=== PATIENT | female | born 1990 ===

== ENCOUNTER 2018-11-28 11:00 | Emergency (ER) | payer SELFPAY ==
[2018-11-28 11:02] VITALS: BMI 21.2
[2018-11-28 11:04] VITALS: O2SAT 100
--- NOTE | 2018-11-28 11:42 | C.PDOC ---
History Of Present Illness 28 year old female presents to the ED complaining of vaginal spotting and abdominal cramping that began this morning. Reports she is currently and is concerned because she had a miscarriage 4 months ago. Denies taking any medications for the pain. Denies any nausea, vomiting, diarrhea, chest pain, back pain, or any other urinary symptoms. Time Seen by Provider: 11/28/18 11:14 Chief Complaint (Nursing): Female Genitourinary History Per: Patient History/Exam Limitations: no limitations Onset/Duration Of Symptoms: Hrs Current Symptoms Are (Timing): Still Present Quality Of Discomfort: Cramping Associated Symptoms: denies: Fever, Chills, Nausea, Vomiting, Diarrhea, Back Pain Past Medical History Reviewed: Historical Data, Nursing Documentation, Vital Signs Vital Signs: Last Vital Signs Temp 97.5 F L 11/28/18 11:10 Pulse 78 11/28/18 11:04 Resp 79 H 11/28/18 11:10 BP 97/61 L 11/28/18 11:10 Pulse Ox 100 11/28/18 11:10 - Medical History PMH: No Chronic Diseases Surgical History: Cholecystectomy Family History: States: No Known Family Hx - Social History Hx Alcohol Use: No Hx Substance Use: No Review Of Systems Constitutional: Negative for: Fever, Chills Cardiovascular: Negative for: Chest Pain Gastrointestinal: Positive for: Abdominal Pain. Negative for: Nausea, Vomiting, Diarrhea Genitourinary: Positive for: Vaginal Bleeding (Spotting ). Negative for: Dysuria, Hematuria Musculoskeletal: Negative for: Back Pain Physical Exam - Physical Exam Appears: Non-toxic, No Acute Distress Skin: Warm, Dry, No Rash Head: Normacephalic Eye(s): bilateral: Normal Inspection, EOMI Oral Mucosa: Moist Neck: Supple Chest: Symmetrical Cardiovascular: Rhythm Regular Respiratory: Normal Breath Sounds, No Rales, No Rhonchi, No Wheezing Gastrointestinal/Abdominal: Bowel Sounds, Soft, Tenderness (Mild suprapubic tenderness ), No Distention, No Guarding, No Rebound Neurological/Psych: Oriented x3, Normal Speech Gait: Steady ED Course And Treatment - Laboratory Results Result Diagrams: 11/28/18 11:49 11/28/18 11:49 Lab Interpretation: No Acute Changes O2 Sat by Pulse Oximetry: 100 (RA) Pulse Ox Interpretation: Normal - CT Scan/US Preg TV Other Rad Studies (CT/US): Read By Radiologist, Radiology Report Reviewed CT/US Interpretation: Accession No. : [id number]. Patient Name / ID : SAVANNA ALEJO / [id number]. Exam Date : 11/28/2018 12:07:13 ( Approved ). Study Comment : Sex / Age : F / 28Y. Creator : Griselda London MD. Dictator : Griselda London MD. Marketing Analytics Specialist : Assistant Professor Nurse Education : Griselda London MD. Approver2 : Report Date : 11/28/2018 12:33:04. My Comment : . Date of service: 11/28/2018. Indication: , bleeding with pain. Comparison: None available. Technique: Transabdominal pelvic ultrasound. Findings: Uterus measures approximately 10.7 x 5.9 x 7.9 cm. Anteverted. Cervix length measures approximately 2.6 cm. There is a single intrauterine fetus present. The gestational sac measures 3.0 cm and is compatible with a gestational age of 8 weeks 0 days. The crown-rump length measures 1.6 cm and is compatible with a gestational age of 8 weeks 0 days. There is heart motion which measured 133.9 BPM. The right ovary measures 2.6 x 1.4 x 2.6 cm. The left ovary measures 2.8 x 2.3 x 2.7 cm. Flow was demonstrated to both ovaries. Impression: Live single intrauterine with estimated gestational age 8 weeks 0 days. heart rate 133.9 bpm. Advise an anomaly screen at 16-18 weeks gestational age Medical Decision Making Medical Decision Making: Impression: with cramping pain and light spotting Plan - Labs - Transvaginal US Labs reviewed and unremarkable Ultrasound shows IUP 8 weeks Patient remained well in no distress. Discussed results and diagnosis of threatened miscarriage with patient and the plan for discharge. she understands and needs to follow up with grill attendant Disposition Counseled Patient/Family Regarding: Diagnosis, Need For Followup - Disposition Referrals: [facility] [Outside] [facility] [Outside] Disposition: HOME/ ROUTINE Disposition Time: 13:22 Condition: GOOD Additional Instructions: Your labs were normal. Ultrasound shows 8 weeks Please follow up with WELDING MACHINE OPERATOR THERMIT for further evaluation and care Instructions: Threatened Miscarriage (DC) Forms: [employer] (Guatemalan) - POA Present On Arrival: None - Clinical Impression Clinical Impression: Threatened - PA / WAREHOUSER / Resident Statement MD/DO has examined the patient and agrees with the treatment plan. - Scribe Statement The provider has reviewed the documentation as recorded by the Scribe Yajaira Manuel All medical record entries made by the Scribe were at my direction and personally dictated by me. I have reviewed the chart and agree that the record accurately reflects my personal performance of the history, physical exam, medical decision making, and the department course for this patient. I have also personally directed, reviewed, and agree with the discharge instructions and disposition.
[2018-11-28 11:57] LABS: BASO % 0.3 % (0.0-2.0); EOS # 0.3 K/uL (0.0-0.7); EOS % 2.4 % (0.0-4.0); HEMOGLOBIN 14.5 g/dL (11.0-16.0); LYMPH # 1.4 K/uL (1.0-4.3); LYMPH % 12.2 % (20.0-40.0); MEAN CELL VOLUME 86.7 fL (81.0-99.0); MEAN CORPUSCULAR HEMOGLOBIN 28.2 pg (27.0-31.0); MEAN CORPUSCULAR HGB CONC 32.5 g/dL (33.0-37.0); MEAN PLATELET VOLUME 9.5 fL (7.2-11.7); MONO # 0.5 K/uL (0.0-0.8); MONO % 4.8 % (0.0-10.0); NEUT # 9.1 K/uL (1.8-7.0); NEUT % 80.3 % (50.0-75.0); RBC 5.15 Mil/uL (3.80-5.20); WHITE BLOOD COUNT 11.4 K/uL (4.8-10.8)
[2018-11-28 12:02] LABS: HCG,QUALITATIVE URINE POSITIVE (NEGATIVE)
[2018-11-28 12:09] LABS: ALB/GLOB RATIO 1.4 (1.0-2.1); ALBUMIN 4.1 g/dL (3.5-5.0); ALT/SGPT 10 U/L (9-52); AST/SGOT 28 U/L (14-36); BLOOD UREA NITROGEN 8 mg/dL (7-17); GFR NON-AFRICAN AMERICAN > 60
[2018-11-28 12:10] LABS: PROTHROMBIN TIME 11.4 SECONDS (9.7-12.2)
[2018-11-28 12:18] LABS: SQUAMOUS EPITHIAL 2 /hpf (0-5); URINE BILIRUBIN NEGATIVE (NEGATIVE); URINE BLOOD 1+ (NEGATIVE); URINE CLARITY Clear (Clear); URINE COLOR Yellow (YELLOW); URINE GLUCOSE (UA) NORMAL (Normal); URINE LEUKOCYTE ESTERASE NEG Leu/uL (Negative); URINE PROTEIN NEGATIVE (NEGATIVE); URINE UROBILINOGEN NORMAL mg/dL (0.2-1.0)
--- NOTE | 2018-11-28 12:36 | US ---
Date of service: 11/28/2018 Indication: , bleeding with pain Comparison: None available Technique: Transabdominal pelvic ultrasound. Findings: Uterus measures approximately 10.7 x 5.9 x 7.9 cm. Anteverted. Cervix length measures approximately 2.6 cm. There is a single intrauterine fetus present. The gestational sac measures 3.0 cm and is compatible with a gestational age of 8 weeks 0 days. The crown-rump length measures 1.6 cm and is compatible with a gestational age of 8 weeks 0 days. There is heart motion which measured 133.9 BPM. The right ovary measures 2.6 x 1.4 x 2.6 cm. The left ovary measures 2.8 x 2.3 x 2.7 cm. Flow was demonstrated to both ovaries. Impression: Live single intrauterine with estimated gestational age 8 weeks 0 days. heart rate 133.9 bpm. Advise an anomaly screen at 16-18 weeks gestational age
[2018-11-28 13:41] VITALS: BP 89/70; PULSE 70; RESP 20; TEMP 99
== END 2018-11-28 13:40 | disposition home or self-care (01) ==
LOC: C.ER 11:00
DX: O20.0 Threatened abortion (principal); Z3A.08 8 weeks gestation of pregnancy